=== PATIENT | male | born 1945 | race Caucasian/White ===

== ENCOUNTER → 2020-05-16 | Outpatient (CLI) | payer MEDICARE ==
[~2020-05-16] MED LIST: ECOTRIN81 MG PO; FLONASE 0.05% N16 GM; NORFLEX 100 MG100 MG PO; PROVENTIL HFA6.7 GM INH; Voltaren Gel 1 % TOP; XANAX 0.25 MG0.25 MG PO; ZYRTEC10 MG PO
[2020-05-16 14:22] LABS: HEMOGLOBIN 15.6 gm/dl (14.0-17.5); RED BLOOD COUNT 4.8 M/UL (4.20-5.50); WHITE BLOOD COUNT 7.7 K/UL (4.5-11.0)
[2020-05-16 15:05] LABS: BUN/CREATININE RATIO 13 (0-10)
[2020-05-17 08:14] LABS: HIV SCREEN 4TH GENERATION WRFX Non Reactive (Non Reactive)
[2020-05-17 14:14] LABS: ANGIOTENSIN-CONVERTING ENZYME 65 U/L (14-82); RHEUMATOID ARTHRITIS FACTOR 42.2 IU/mL (0.0-13.9)
[2020-05-17 15:14] LABS: ATYPICAL PANCA <1:20 titer (Neg:<1:20); CYTOPLASMIC (C-ANCA) <1:20 titer (Neg:<1:20); PERINUCLEAR (P-ANCA) <1:20 titer (Neg:<1:20)
[2020-05-17 17:09] LABS: TREPONEMA PALLIDUM ANTIBODIES Non Reactive (Non Reactive)
[2020-05-18 14:12] LABS: T PALLIDUM AB (FTA-AB) Non Reactive (Non Reactive)
[2020-05-19 19:08] LABS: QUANTIFERON MITOGEN VALUE >10.00 IU/mL (.); QUANTIFERON NIL VALUE 0.06 IU/mL (.); QUANTIFERON TB2 AG VALUE 0.07 IU/mL (.); QUANTIFERON-TB GOLD PLUS Negative (Negative)
== END ==
LOC: LAB 12:20
PROVIDERS: Ophthalmology
DX: H43.89 Other disorders of vitreous body (principal); R75 Inconclusive laboratory evidence of human immunodeficiency virus [HIV]
CPT/HCPCS: 36415; 71046; 80053; 82164; 85025; 85549; 86038; 86256; 86431; 86780; 87389

== ENCOUNTER → 2020-05-23 | Outpatient (CLI) | payer MEDICARE | LOC: LAB 11:52 | DX: Z01.812 Encounter for preprocedural laboratory examination (principal) | CPT/HCPCS: 36415; 82565; 84520 ==

== ENCOUNTER → 2020-05-25 | Outpatient (CLI) | payer MEDICARE | LOC: MRI 08:38 | DX: H44.119 Panuveitis, unspecified eye (principal); H54.7 Unspecified visual loss; E22.0 Acromegaly and pituitary gigantism | CPT/HCPCS: 70553; A9577 ==

== ENCOUNTER → 2021-01-20 | Outpatient (CLI) | payer MEDICARE ==
[~2021-01-20] MED LIST changes: +AZELASTINE137 MCG/0.; +IBUPROFEN600 MG PO; +SINGULAIR10 MG PO; +XANAX0.5 MG PO
[2021-01-20 13:13] LABS: HEMOGLOBIN 14.8 gm/dl (14.0-17.5); RED BLOOD COUNT 4.62 M/UL (4.20-5.50); WHITE BLOOD COUNT 7.9 K/UL (4.5-11.0)
[2021-01-20 13:34] LABS: BUN/CREATININE RATIO 14 (0-10)
== END ==
LOC: OPSV2 11:00
PROVIDERS: Anesthesiology
DX: Z01.818 Encounter for other preprocedural examination (principal)
CPT/HCPCS: 36415; 80048; 85025; 93005

== ENCOUNTER → 2021-01-23 | Day surgery (SDC) | payer MEDICARE | END | disposition home or self-care (01) | LOC: OR 06:41 | DX: C85.10 Unspecified B-cell lymphoma, unspecified site (principal); I87.8 Other specified disorders of veins; I70.0 Atherosclerosis of aorta; K21.9 Gastro-esophageal reflux disease without esophagitis; J30.9 Allergic rhinitis, unspecified; F41.9 Anxiety disorder, unspecified; F32.A Depression, unspecified; Z79.52 Long term (current) use of systemic steroids; Z79.899 Other long term (current) drug therapy; Z20.822 Contact with and (suspected) exposure to COVID-19; Z86.73 Personal history of transient ischemic attack (TIA), and cerebral infarction without residual deficits | CPT/HCPCS: 71045; 77001; C1769; C1788; J0690; J1100; J1642; J2001; J2370; J2405; J2704; J3010; J7030; J7040; J7120 ==

== ENCOUNTER → 2021-02-24 | Outpatient (CLI) | payer MEDICARE | LOC: ECHO 01-23 09:45 | DX: C83.39 Diffuse large B-cell lymphoma, extranodal and solid organ sites (principal); C79.49 Secondary malignant neoplasm of other parts of nervous system; I35.8 Other nonrheumatic aortic valve disorders | CPT/HCPCS: ECHO; 93306 ==

== ENCOUNTER → 2021-05-31 | Outpatient (CLI) | payer MEDICARE | LOC: ECHO 08:30 | DX: C83.39 Diffuse large B-cell lymphoma, extranodal and solid organ sites (principal); C79.49 Secondary malignant neoplasm of other parts of nervous system; Z01.89 Encounter for other specified special examinations; I08.0 Rheumatic disorders of both mitral and aortic valves | CPT/HCPCS: ECHO; 93306 ==

== ENCOUNTER → 2021-05-31 | Outpatient (CLI) | payer MEDICARE | LOC: KOH-I 13:56 | DX: C83.39 Diffuse large B-cell lymphoma, extranodal and solid organ sites (principal); C79.49 Secondary malignant neoplasm of other parts of nervous system; Z01.89 Encounter for other specified special examinations; R91.8 Other nonspecific abnormal finding of lung field | CPT/HCPCS: 71046 ==